=== PATIENT | male | born 2000 | race Caucasian/White ===

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

== ENCOUNTER 2024-04-25 23:09 | Emergency (ER) | payer OTHER, SELFPAY ==
[2024-04-25 23:13] VITALS: BP 147/86; PULSE 93; RESP 18; TEMP 36.1; O2SAT 99
--- NOTE | 2024-04-25 23:41 | PC.NURSE ---
Pt states pesticide was [employer]and CS with an active ingredient of lambda-cyhalothrin.
--- NOTE | 2024-04-26 00:25 | ED.GENADULT ---
HPI - General Adult General Chief complaint: Environmental Exposure Stated complaint: chemical exposure Time Seen by Provider: 04/26/24 00:16 Source: patient Mode of arrival: ambulatory Limitations: no limitations History of Present Illness HPI narrative: This is a 23-year-old male who presents to the ED for chief complaint of chemical exposure. 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 He reports burning, tingling and itchiness all across the lower back and posterior thighs. Denies any inhalation or other ingestion. Denies fevers, chills chest pain, shortness of breath, cough, wheezing, extremity weakness. Denies skin lesions Related Data Allergies Allergy/AdvReac Type Severity Reaction Status Date / Time Sulfa (Sulfonamide Allergy Severe Nausea and Verified 04/25/24 23:42 Antibiotics) Vomiting, and Hives Review of Systems Review of Systems: All systems as dictated in HPI Exam Narrative: GENERAL: Well-appearing, well-nourished, and in no acute distress. HEAD: Normocephalic, atraumatic. EYES: PERRLA and EOMI. ENT: Nares clear, no rhinorrhea or epistaxis. Mucous membranes moist. Oropharynx without tonsillar hypertrophy exudate or other lesions. NECK: Supple. No adenopathy or masses. CHEST: No respiratory distress. Clear to auscultation. No wheezes rales or rhonchi HEART: Regular rate and rhythm. No murmur heard. Normal peripheral pulses. ABDOMEN: Soft, nontender, nondistended, normal active bowel sounds. MSK: Normal range of motion. No edema. SKIN: Warm, dry, no rash. NEURO: Alert and oriented x4. No focal deficits. PSYCH: Normal mood and affect. Course Vital Signs Vital signs: Vital Signs Temperature 97.0 F L 04/25/24 23:13 Pulse Rate 93 04/25/24 23:13 Respiratory Rate 18 04/25/24 23:13 Blood Pressure 147/86 H 04/25/24 23:13 Pulse Oximetry 99 04/25/24 23:13 Temperature 97.0 F L 04/25/24 23:13 Pulse Rate 93 04/25/24 23:13 Respiratory Rate 18 04/25/24 23:13 Blood Pressure 147/86 H 04/25/24 23:13 Pulse Oximetry 99 04/25/24 23:13 Medical Decision Making MDM Narrative Medical decision making narrative: This is a 23-year-old male who presents to the ED for chief complaint of past aside exposure from his backpack at work today. Pesticide noted as [employer] CS. vitals are normal. Exam is benign. No skin lesions. Symptoms and presentation consistent with allergic/adverse reaction to pesticide exposure. he will be given steroids and Benadryl. Pt will be discharged in stable condition. Return precautions given and supportive measures discussed. Pt is understanding and agreeable with plan for discharge and follow-up with PCP. Vital Signs Vital Signs: Vital Signs Temperature 97.0 F L 04/25/24 23:13 Pulse Rate 93 04/25/24 23:13 Respiratory Rate 18 04/25/24 23:13 Blood Pressure 147/86 H 04/25/24 23:13 Pulse Oximetry 99 04/25/24 23:13 Temperature 97.0 F L 04/25/24 23:13 Pulse Rate 93 04/25/24 23:13 Respiratory Rate 18 04/25/24 23:13 Blood Pressure 147/86 H 04/25/24 23:13 Pulse Oximetry 99 04/25/24 23:13 Discharge Plan Discharge Clinical Impression: Adverse effect of pesticide Patient Disposition: Home, Self-Care Condition: Stable Instructions: Antibiotic Form Additional Instructions: Your exam today is reassuring overall. Please take steroids and Benadryl to help with the reaction to the past side. You could also take Tylenol and ibuprofen. If you have any new or worsening symptoms please return to the ER for further evaluation. Prescriptions: New prednisone 20 mg tablet 20 mg PO DAILY 5 Days Qty: 5 0RF diphenhydramine HCl [Aler-Cap] 25 mg capsule 25 mg PO BID PRN (Reason: allergic reaction) Qty: 20 0RF Follow-up/Referrals: Ant,Mary [Other] Time of Disposition: 00:44
[2024-04-26] MEDS: predniSONE 20 MG TABLET PO (00:34)
[2024-04-26] MEDS: diphenhydrAMINE HCl CAP 25 MG CAPSULE 50 MG PO (00:34)
[2024-04-26 00:54] VITALS: BP 138/72; PULSE 92; RESP 17; TEMP 36.2; O2SAT 97
== END 2024-04-26 00:56 | disposition home or self-care (01) ==
PROVIDERS: Emergency Provider Physician Assistant
DX: T60.1X1A Toxic effect of halogenated insecticides, accidental (unintentional), initial encounter (principal); L29.9 Pruritus, unspecified
CPT/HCPCS: 99283; A9270; J7512